=== PATIENT | female | born 1985 | race African-American/Black ===

== ENCOUNTER 2016-04-26 16:24 | Emergency (ER) | payer BC, OTHER ==
[~2016-04-26] VITALS: Ht 188 cm; Wt 174.2 kg
[~2016-04-26 16:24] MED LIST: HYDR-3288 PO; HYDR-3533 PO; ZOFR4TAB3 SL
[2016-04-26 16:29] VITALS: BP 159/99; PULSE 85; RESP 16; TEMP 98; O2SAT 100
--- NOTE | 2016-04-26 17:58 | PD ---
HPI Chief Complaint: Injury Time Seen by Provider: 17:54 Travel History International Travel<30 days: No Contact w/Intl Traveler<30days: No Traveled to known affect area: No History of Present Illness HPI Patient's 30-year-old female presenting with painful swollen tip of the right index finger. She is on the radial aspect. There is around the nail. There is getting worse the last week or 2. Patient admits to biting her nails. She is pleasant topical analgesics which have helped slightly. She denies diffuse swelling of the digit and radiating pain. She denies any loss of range of motion or paresthesia. She denies fever, chill, nausea and vomiting. She denies chronic medical conditions and denies current or missed menstrual cycles. PFSH Past Medical History Blood Disorders: No Cancer: No Cardiovascular Problems: No Diminished Hearing: No Endocrine: No Gastrointestinal Disorders: Yes (STATES SHE HAS HAD "ISSUES WITH HER GALLBLADDER" IN THE PAST) Genitourinary: No Headaches: Yes Implanted Vascular Access Dvce: No Musculoskeletal: Yes (HERNIATED DISC LUMBAR SPINE) Psychiatric: No Reproductive: No Respiratory: No ?: Not : 2 Para: 2 Miscarriage: 1 : 0 Past Surgical History Section: Yes Gynecologic Surgery: Yes (c section) Other Surgery: Yes (C SECTION) Social History Alcohol Use: No Tobacco Use: No Substance Use: No Allergies-Medications (Allergen,Severity, Reaction): Coded Allergies: Darvocet-N 100 (Verified Allergy, Severe, HIVES, 04/26/16) Flexeril (Verified Allergy, Severe, Hives, 04/26/16) Reported Meds & Prescriptions Reported Meds & Active Scripts Active Cephalexin 500 Mg Tab 500 Mg PO Q6H Bactrim DS (Sulfamethoxazole-Trimethoprim) 800-160 Mg Tab 1 Tab PO BID [place] (Hydrocodone-Acetaminophen) 7.5-325 mg Tab 1-2 Tab PO Q4H PRN Review of Systems General / Constitutional: No: Fever, Chills Musculoskeletal: No: Limited ROM Skin: Positive Other (see the history of present illness) Neurologic: No: Weakness, Focal Abnormalities, Paresthesia, Sensory Disturbance Hematologic/Lymphatic: No: Lymph Node Enlargement Physical Exam Narrative GENERAL: Well-developed and well-nourished adult female in no acute distress. SKIN: Warm and dry. Good turgor without tenting. HEAD: Normocephalic and atraumatic. NECK: Supple, no midline tenderness, crepitus or step-offs. Trachea midline, no JVD. No cervical or facial lymphadenopathy. CARDIOVASCULAR: Regular rate and rhythm without murmurs, rubs, clicks or gallops. Radial pulses 2+ bilaterally. Capillary refill less than 2 seconds distal tip of the right index finger. RESPIRATORY: Clear to auscultation bilaterally with symmetrical rise and fall, no distress or use of accessory muscles. MUSCULOSKELETAL: Patient has moderate edema, erythema and fluctuance around the epionychium on the radial aspect of the second digit of the right hand consistent with paronychia. Tender to palpation. No diffuse pulse swelling or pulp tenderness. No subungual hematoma. No fusiform swelling. Patient is full flexion and extension in the digit. No gait disturbances. Patient freely moving all four extremities spontaneously. Extremities without clubbing or cyanosis. No obvious deformities. NEUROLOGIC: CN II-XII grossly intact. Awake and alert. Motor grossly within normal limits. Sensation intact to the distal tip of the second digit right hand. Normal speech. PSYCHIATRIC: Appropriate mood and affect; insight and judgment normal. Data Data Last Documented VS Vital Signs Date Time Temp Pulse Resp B/P Pulse Ox O2 Delivery O2 Flow Rate FiO2 04/26/16 16:29 98.0 85 16 159/99 100 Orders Wound Culture And Gram Stain (04/26/16 17:53) MDM Medical Decision Making Medical Screen Exam Complete: Yes Emergency Medical Condition: Yes Differential Diagnosis Paronychia versus felon versus ingrown nail Narrative Course The patient is a 30-year-old otherwise healthy female who is afebrile, nontoxic , no systemic complaints with history and physical suggestive paronychia. Drained per attached procedure narrative. Sent culture. Wound was dressed and patient was given Bactrim and Keflex and recommend Epsom salt soaks.See discharge paperwork for further instructions. The plan was discussed with the patient who acknowledged their understanding and agreement. Reinforced the follow-up with primary care is critically important. Patient instructed on emergent conditions that should prompt return to ED. Procedures Procedure Narrative I&D LOCATION: Right index finger paronychia ANESTHESIA: Local chloride PROCEDURE: The paronychia was prepped with Betadine and sterilely draped. The plan at the chloride spray for 7 seconds and then using an 18-gauge needle along the her Nexium skin from the nail is able to drain approximately 2 mL's purulent and slightly bloody material. The wound was copiously irrigated and loculations were broken up. The wound was left open and covered with a sterile dressing. Packing was not done. The patient was advised to keep the dressing clean and dry. Patient tolerated the procedure well. Diagnosis Primary Impression: Paronychia Qualified Code: L03.011 - Paronychia, right Patient Instructions: General Instructions, Paronychia (ED) Additional Instructions: Keep area clean, dry, and covered with dressing/bandage Apply warm compresses daily to help with drainage Warm water Epsom salt soaks will help promote drainage Wound will continue to drain which is normal Take Tylenol or ibuprofen for pain Take medications as directed Follow-up with PCP in 2 days, call laboratory for wound culture results Return to the ED for any acute worsening of symptoms including worsening swelling, spreading redness, fever, chills, nausea and vomiting Med/Other Pt SpecificInfo: Prescription(s) given Scripts Cephalexin 500 Mg [id number] Mg PO Q6H #40 TAB Prov:Romel Jaimes MD 04/26/16 Sulfamethoxazole-Trimethoprim (Bactrim DS)800-160 Mg Tab1 Tab PO BID #20 TAB Prov:Romel Jaimes MD 04/26/16 Disposition: 01 DISCHARGE HOME Condition: Stable Jorge Cuellar III Apr 26, 2016 17:58
[2016-04-26] MEDS ORDERED: BACT800T5 PO (17:59)
[2016-04-26] MEDS ORDERED: CEPH500T PO (17:59)
== END 2016-04-26 18:45 | disposition home or self-care (01) ==
LOC: PHEFT 16:24
DX: L03.011 Cellulitis of right finger (principal); B95.1 Streptococcus, group B, as the cause of diseases classified elsewhere
CPT/HCPCS: 10060; 86403; 87070; 87185; 87205

== ENCOUNTER 2017-07-12 19:49 | Emergency (ER) | payer BC, OTHER ==
[~2017-07-12] VITALS: Ht 182.9 cm; Wt 95.0 kg
[~2017-07-12 19:49] MED LIST changes: +BACT800T5 PO; +CEPH500T PO; -HYDR-3533 PO; -ZOFR4TAB3 SL
[2017-07-12 20:00] VITALS: BP 156/84; PULSE 101; RESP 18; TEMP 98.2; O2SAT 100
--- NOTE | 2017-07-12 22:57 | PD ---
HPI Chief Complaint: Back/ Neck Pain or Injury Time Seen by Provider: 22:41 Travel History International Travel<30 days: No Contact w/Intl Traveler<30days: No Traveled to known affect area: No History of Present Illness HPI 31-year-old black female presents emergency department with complains of acute exacerbation of chronic back pain. Patient states that she is under the care of Dr. Alamo and takes hydrocodone 3 times a day. She states that she had increasing back pain with spasm after working yesterday. 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 She states that she had taken only one of her hydrocodone today because it did not help she did not take any additional pain medication. She denies any numbness, tingling or focal weakness. Pain is moderate. Worse with bending and movement. Some relief with standing upright. She states that this is similar type pain that she has had in the past. History Past Medical Histgory Narrative Medical Chronic back pain Tetanus Vaccination: > 5 Years Hx Cancer: No Past Surgical History Surgical History: No Previous Surgery Social History Alcohol Use: No Tobacco Use: No Allergies-Medications (Allergen,Severity, Reaction): Coded Allergies: acetaminophen (Unverified Allergy, Severe, HIVES, 07/12/17) cyclobenzaprine (Unverified Allergy, Severe, Hives, 07/12/17) propoxyphene (Unverified Allergy, Severe, HIVES, 07/12/17) Reported Meds & Prescriptions Reported Meds & Active Scripts Active Cephalexin 500 Mg Tab 500 Mg PO Q6H Bactrim DS (Sulfamethoxazole-Trimethoprim) 800-160 Mg Tab 1 Tab PO BID [place] (Hydrocodone-Acetaminophen) 7.5-325 mg Tab 1-2 Tab PO Q4H PRN Review of Systems Except as stated in HPI: all other systems reviewed are Neg Physical Exam Narrative GENERAL: Well-developed, well-nourished in no apparent distress. Nontoxic appearing. HEAD: Normocephalic, atraumatic. EYES: Pupils equal round and reactive. Extraocular motions intact. No scleral icterus. No injection or drainage. ENT: Nose clear. Throat without erythema, tonsillar hypertrophy or exudate. Uvula midline. Airway patent. NECK: Trachea midline. Supple, nontender, moves head freely. No central bony tenderness or spasm. CARDIOVASCULAR: Regular rate and rhythm without murmurs, gallops, or rubs. RESPIRATORY: Clear to auscultation. Breath sounds equal bilaterally. No wheezes , rales, or rhonchi. GASTROINTESTINAL: Abdomen soft, non-tender, nondistended. No hepato-splenomegaly , or palpable masses. No guarding. EXTREMITIES: No clubbing, cyanosis, or edema. No joint tenderness. BACK: No central bony tenderness to palpation of the dorsal lumbar spine. Patient complains of bilateral para lower lumbar discomfort just above the SI joints. She has decreased forward flexion to 120. No saddle anesthesia. Intact gross sensation. Without deformity. No flank tenderness.Patient is able to toe and heel stand. NEUROLOGICAL: Awake, alert and oriented x 3 .Cranial nerves grossly intact. Motor and sensory grossly within normal limits. Normal speech. Data Data Last Documented VS Vital Signs Date Time Temp Pulse Resp B/P (MAP) Pulse Ox O2 Delivery O2 Flow Rate FiO2 07/12/17 20:00 98.2 101 18 156/84 (108) 100 MDM Medical Screen Exam Complete: Yes Emergency Medical Condition: No Differential Diagnosis MDM: High Differential diagnoses: Fracture, sprain, strain, HNP, nerve or vascular injury , epidural abscess, pilonidal cyst Narrative Course A medical screening exam was performed: At the time of evaluation the presenting medical condition was determined not to be of an emergent nature. The patient was given the option of receiving additional care, but declined. Patient was given options for additional community resources from which to obtain care. The Patient Has Been advised to seek medical attention for their presenting complaint. The patient has been advised to return to the ER at any time if an emergent condition develops. Primary Impression: Encounter for medical screening examination Condition: Mariano Owusu Jul 12, 2017 22:57
== END 2017-07-12 23:15 | disposition left against medical advice (07) ==
LOC: NEPD 19:49
DX: M54.9 Dorsalgia, unspecified (principal); G89.29 Other chronic pain; Z88.6 Allergy status to analgesic agent; Z88.8 Allergy status to other drugs, medicaments and biological substances
CPT/HCPCS: 99281